=== PATIENT | female | born 1985 | race Caucasian/White ===

== ENCOUNTER 2017-02-18 21:07 | Emergency (ER) | payer OTHER ==
[~2017-02-18] VITALS: Ht 154.9 cm; Wt 79.5 kg
[~2017-02-18 21:07] MED LIST: NOMED
[2017-02-18 21:13] VITALS: BP 149/92; RESP 16; O2SAT 96
--- NOTE | 2017-02-18 22:03 | ED.REPORT ---
HPI-Ear Pain/Problem/FB Date of Service Feb 18, 2017 ED Provider: Aniket Infante MD Pt is a 31 y/o female who presents to the ED c/o intermittent right ear pain onset 10 days ago. She states that she can feel her right ear "pop" and cannot hear out of it. She denies fever, chills, cough, nausea, vomiting, focal weakness, or any other symptoms. Pt reports having recurrent ear infections as a child. Nursing Notes Stated Complaint: RIGHT EAR PAIN, UNABLE TO HEAR Chief Complaint: ENT & Mouth Nursing Notes Reviewed: Yes Allergies: Coded Allergies: No Known Allergies (Verified , 02/18/17) Scheduled Amoxicillin (Amoxicillin) 500 Mg Capsule 500 MG PO TID Miscellaneous Medications No Historical Medication (No Historical Medication) Ea General Time Seen by MD: 22:02 Chief Complaint Ear problem right Hx Obtained From: Patient Arrived By: Walk-in Onset Occurred: More than a week ago... (2 weeks) Symptom Duration: Intermittent Location: : Inner ear Quality: Painful Severity: Current: Moderate Severity: Maximum: Moderate Recent Healthcare: No recent doctor visit, No recent hospitalization Similar Sx Previous: Yes Past Medical History Past Medical History Denies Past Surgical History Denies Social History Other Social History: Good social support Ambulatory Status Independent Review of Systems Constitutional: Denies: Chills, Fever Ears / Nose / Throat: Reports: Earache right Complete sys rev & neg: except as marked. Additional Review of Systems Respiratory: Denies: Non-productive cough, Prod cough, clear GI: Denies: Nausea, Vomiting Neurologic: Denies: Focal weakness Physical Exam Initial Vital Signs Vital Signs (First) Date Time Temp Pulse Resp B/P Pulse Ox O2 Delivery O2 Flow Rate FiO2 02/18/17 21:13 36.6 90 16 149/92 96 Room Air Initial VS: Reviewed Neck: Supple, Full range of motion Respiratory: No respiratory distress Extremities: Vascular intact, Neuro intact, No swelling, No tenderness Skin: Warm, Dry, No cyanosis Neurologic: Alert, Oriented, Nonfocal Psychiatric: Mood/affect normal, Behavior normal, Normal thought content General/Constitutional: Awake, Alert ENT: Atraumatic, Airway patent Left TM clear Right TM erythemous with effusion, TM intact Re-Eval/Medical Decision Med Decision/Clinical Course Right acute otitis media. Antibiotics as below. Return precautions given. Source of Hx: Old records Re-Evaluation/Progress : Time of Eval: 22:07 Re-Evaluation/Progress Note: Discussed plan for discharge. Pt agrees and understands plan. Gave all RTER and follow-up directions. All questions addresssed at this time. Counseled Regarding: Diagnosis, Lab results, Need for follow-up, When/why to return to ED Discharge & Departure Primary Impression: Right acute otitis media Disposition: Home Discharge Condition All VS Reviewed: Yes Condition: Stable Patient Instructions: Otitis Media (ED) Additional Instructions: Your examination today was reassuring. It seems you have an ear infection in your right ear. Take amoxicillin as directed. Please return to the emergency department if you experience if any new or worsening symptoms. You can follow-up with your primary care doctor if your symptoms do not improve within a week. Referrals: [facility] (PCP) Scribe Attestation Portions of this note were transcribed by Sowmya Christina. I, Dr. Infante, personally performed the history, physical exam and medical decision-making; I reviewed and confirmed the accuracy of the information in the transcribed note. Aniket Infante MD Feb 18, 2017 22:03 Sowmya Christina Feb 18, 2017 22:15
[2017-02-18] MEDS ORDERED: AMOX500C2 PO (22:14)
[2017-02-18 22:23] VITALS: BP 149/92; PULSE 90; RESP 16; O2SAT 96
== END 2017-02-18 22:24 | disposition home or self-care (01) ==
LOC: SED 21:17
DX: H66.91 Otitis media, unspecified, right ear (principal)